=== PATIENT | male | born 1975 | race Caucasian/White ===

== ENCOUNTER 2022-10-24 18:01 | Emergency (ER) | payer OTHER, SELFPAY ==
--- NOTE | 2022-10-24 14:42 | ECG_ITS ---
Measurements Intervals [place]man Rate: 66 P: 47 MA: 172 QRS: 24 QRSD: 105 T: 36 QT: 387 QTc: 406 Interpretive Statements SINUS RHYTHM DELAYED PRECORDIAL R/S TRANSITION BASELINE ARTIFACT- I, II, III, AVR, AVL, AVF BORDERLINE ECG NO PREVIOUS ECG AVAILABLE FOR COMPARISON Electronically Signed On 10-26-2022 8:02:01 CDT by Earl ANGULO
[2022-10-24 18:09] VITALS: BP 148/85; PULSE 20; RESP 20; TEMP 36.8; O2SAT 98
--- NOTE | 2022-10-24 18:18 | ED.HA ---
HPI - Headache General Chief Complaint: Headache Stated Complaint: headache / high blood pressure Time Seen by Provider: 10/24/22 18:18 Mode of arrival: ambulatory Limitations: no limitations History of Present Illness HPI Narrative: 47-year-old male presents concern for headache, high blood pressure. Reports symptoms started 3 days ago, he reports he had a episode of ?feeling off balance?. He reports he has been taking his blood pressure at home and it was elevated up to 172/94. He ports he has had a mild headache intermittently. He reports he quit smoking about 5 days ago. He denies history of hypertension. He denies thunderclap headache, weakness in any extremity, trouble swallowing, trouble speaking. MD elicited complaint: headache Related Data Home Medications Medication Instructions Recorded Confirmed aspirin 81 mg tablet 81 mg PO DAILY 10/24/22 10/24/22 Allergies Allergy/AdvReac Type Severity Reaction Status Date / Time Penicillins Allergy Swelling Verified 10/24/22 18:16 of Lip/Tongue/Throat Review of Systems Review of Systems: CONSTITUTIONAL: Denies malaise, chills, sweats, or fever. EYES: Denies visual changes ENT: Denies rhinorrhea, congestion, sinus pain, otalgia or sore throat. CARDIOVASCULAR: Reports occasional left-sided chest pain. Denies palpitations or edema. RESPIRATORY: Denies cough or dyspnea. GASTROINTESTINAL: Denies abdominal pain, nausea, vomiting, diarrhea, SKIN: Denies rash or itching. MUSCULOSKELETAL: Denies back pain, joint pain, or myalgia. NEUROLOGIC: Denies numbness, weakness. Reports headache. PSYCHIATRIC: Denies anxiety or depression. All systems reviewed & are unremarkable except as noted in HPI and below PMFSH Comments At time of signature, agree with nursing past medical, surgical, social and family history. There is no relevant family history pertinent to the presenting complaint Exam Narrative: GENERAL: Well-appearing, well-nourished, and in no acute distress. HEAD: Normocephalic, atraumatic. EYES: PERRLA, sclera clear, and EOMI. No nystagmus. ENT: Nares clear, no rhinorrhea or epistaxis. Mucous membranes moist. Oropharynx without erythema or lesions. Tonsils not enlarged and without exudate. NECK: Supple. No lymphadenopathy. No jugular venous distension, thyromegaly, or carotid bruits. Carotids were easily palpable bilaterally. CHEST: No respiratory distress. Clear to auscultation. No bony deformities, no asymmetry. Speaks in full sentences. HEART: Regular rate and rhythm. No murmur heard. Normal peripheral pulses. EXTREMITIES: Grossly normal range of motion. No edema. Grossly normal strength and sensation. SKIN: Warm, dry, no visible rash. NEURO: Alert and oriented x3. No focal deficits. Cranial nerves II through XII grossly intact PSYCH: Normal mood and affect Course Course Emergency Course: Discussed limited diagnostic capability Express Care for patient's symptoms. Discussed importance of following up with primary care provider for evaluation hypertension. Offered transfer to emergency department for further evaluation of symptoms, patient prefers to follow-up with his primary care provider. Patient is aware of diagnosis, understands and agrees to treatment plan. Anticipatory guidance given. Patient agrees to follow-up as directed and is aware of reasons to seek care at the emergency department. Portions of this record may have been created with voice recognition software Level of Care: Express Care Visit Vital Signs Vital signs: Reviewed. MDM - Headache MDM Narrative Medical decision making narrative: The patient presents with an acute onset headache for 3 days in duration. Patient has no past history of headaches. There is not a history of anticoagulation, trauma, , cancer or immunocompromised state. Mental status was normal, no neurological deficits were noted. Differential Diagnosis considered includes hypertensive emergency, subarachno
== END 2022-10-24 18:48 | disposition home or self-care (01) ==
PROVIDERS: Emergency Provider Nurse Practitioner; PCP Family Medicine
DX: R51.9 Headache, unspecified (principal); R03.0 Elevated blood-pressure reading, without diagnosis of hypertension; Z87.891 Personal history of nicotine dependence; Z79.82 Long term (current) use of aspirin
CPT/HCPCS: 93005; 99213; G0463

== ENCOUNTER 2024-06-13 17:23 | Emergency (ER) | payer OTHER, SELFPAY ==
--- NOTE | ~2024-06-13 | CT_ITS ---
History: Bilateral lower extremity paresthesias and subjective slurred speech PROCEDURE: CT head without contrast. COMPARISON: None TECHNIQUE: Axial imaging of the head performed from the skull base to the vertex without IV contrast. Sagittal a nd coronal reformations obtained. DLP: 605 mGy-cm FINDINGS: The ventricles are normal in size, shape and position. There is no mass, mass effect or midline shift. There is no abnormal extra-axial fluid collection or intracranial hemorrhage. Visualized paranasal sinuses are clear. The mastoid air cells are well aerated. No acute displaced fractures within the overlying cranium. Right frontal scalp hematoma. Impression: Right frontal scalp hematoma without underlying fracture. No acute intracranial hemorrhage or suspicious mass effect. Reviewed, dictated and finalized at location A. HER EDGER Impression: Right frontal scalp hematoma without underlying fracture. No acute intracranial hemorrhage or suspicious mass effect.
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
[2024-06-13 17:25] VITALS: BP 149/90; PULSE 98; RESP 20; TEMP 36.5; O2SAT 98
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
[2024-06-13 20:06] VITALS: BP 131/82; PULSE 87; RESP 19; O2SAT 99
== END 2024-06-13 20:06 | disposition home or self-care (01) ==
PROVIDERS: Emergency Provider Preventive Medicine Aerospace Medicine; PCP Family Medicine
DX: S11.90XA Unspecified open wound of unspecified part of neck, initial encounter (principal); M54.2 Cervicalgia; V89.2XXA Person injured in unspecified motor-vehicle accident, traffic, initial encounter; W22.10XA Striking against or struck by unspecified automobile airbag, initial encounter; I10 Essential (primary) hypertension; Z79.82 Long term (current) use of aspirin
CPT/HCPCS: 70450; 72125; 72128; 72131; 99284